=== PATIENT | male | born 1985 | race African-American/Black ===

== ENCOUNTER 2022-03-05 08:08 | Emergency (ER) | payer SELFPAY ==
[~2022-03-05] VITALS: Ht 170.2 cm; Wt 65.0 kg
[2022-03-05 08:14] VITALS: BP 142/86
[2022-03-05] MEDS ORDERED: HALOPERIDOL LACTATE 5MG/ML VIAL IM ONE (15:30)
[2022-03-05] MEDS ORDERED: LORAZEPAM 2MG/ML CPJ IM ONE (15:30)
== END 2022-03-05 17:52 | disposition home or self-care (01) ==
LOC: ER 08:08 → EDBD 08:08 → ER 17:52
DX: R41.82 Altered mental status, unspecified (principal); Z91.83 Wandering in diseases classified elsewhere; R03.0 Elevated blood-pressure reading, without diagnosis of hypertension; Z59.00 Homelessness unspecified
CPT/HCPCS: 99283; J1630; J2060